=== PATIENT | female | born 2000 | race African-American/Black ===

== ENCOUNTER 2024-09-06 19:30 | Emergency (ER) | payer OTHER, BC, SELFPAY ==
--- NOTE | ~2024-09-06 | XR_ITS ---
EXAM: XR ankle LT min 3V DATE: 09/06/2024 19:52 HISTORY: twisted ankle at work today . COMPARISON: None available. FINDINGS: Normal mineralization. No fracture or dislocation. No lytic or blastic lesion. Joint space s are maintained. No erosion or periosteal change. Soft tissues within normal limits. IMPRESSION: No acute osseous finding in the left ankle. Reviewed, dictated and finalized at location K.
[2024-09-06 19:40] VITALS: BP 127/71; PULSE 87; RESP 16; TEMP 36.8; O2SAT 100
--- NOTE | 2024-09-06 20:48 | ED_ITS ---
HPI - Extremity Injury (Lower) General Chief Complaint: Extremity Injury, Lower Stated Complaint: possible sprained ankle Time Seen by Provider: 09/06/24 20:41 History of Present Illness HPI Narrative: Pt stepped off of a shelf at work and rolled ankle. Pt complains of pain to left lateral ankle, Pt denies other injury. Related Data Allergies Allergy/AdvReac Type Severity Reaction Status Date / Time No Known Allergies Allergy Verified 09/06/24 20:52 Review of Systems Review of Systems: All systems reviewed & are unremarkable except as noted in HPI and below Exam Const: General: healthy appearing and no acute distress Nutritional Appearance: well nourished Orientation/consciousness: patient oriented x3 Limitations: no limitations Neck: Neck: normal visual inspection Resp: Effort & Inspection: normal respiratory effort Auscultation: clear to auscultation bilaterally Cardio: Rate: regular rate Rhythm: regular rhythm GI: GI Palp: Yes Soft to palpation Skin: General skin exam: normal color Neuro: General: patient oriented x3, moves all extremities, no meningeal signs and no focal motor deficits Extrem: Other: tender over atfl on left with mild swelling. Psych: Mental Status: mental status grossly normal Affect: normal affect Attitude: cooperative Course Vital Signs Vital signs: Vital Signs Temperature 98.3 F 09/06/24 19:40 Pulse Rate 87 09/06/24 19:40 Respiratory Rate 16 09/06/24 19:40 Blood Pressure 127/71 09/06/24 19:40 Pulse Oximetry 100 09/06/24 19:40 Oxygen Delivery Room Air 09/06/24 19:40 Temperature 98.3 F 09/06/24 19:40 Pulse Rate 87 09/06/24 19:40 Respiratory Rate 16 09/06/24 19:40 Blood Pressure 127/71 09/06/24 19:40 Pulse Oximetry 100 09/06/24 19:40 Oxygen Delivery Room Air 09/06/24 19:40 MDM - Extremity Injury (Lower) MDM Narrative Medical decision making narrative: pt rolled left ankle and has pain to lateral ankle. will get x ray to rule out fx but seems like sprain. x ray neg. home on nsaid and crutches merary Discharge Plan Discharge Clinical Impression: Ankle sprain and strain Patient Disposition: Home Condition: Stable Instructions: Antibiotic Form, Ankle Sprain (DC) Patient Language: Ukrainian Prescriptions: New naproxen [Naprosyn] 500 mg tablet 500 mg PO BID Qty: 20 0RF Follow-up/Referrals: PHYSICIAN NOT ON STAFF,NONSTAFF [Non-Staff] -
--- OUTSIDE RECORDS SUMMARY | 2024-09-06 21:22 | XMS_ITS | Data [employer] ---
Author Organization [employer] , [facility] Address [address] [place] [address] Assessment No assessment recorded. Plan of Treatment Reminders Order Date Submit Date Provider Last Modified By Organization Details Last Modified Time Details Appointments None recorded. Lab bacterial vaginosis + vaginitis panel, vaginal 2022 023 [employer] Mehdi, [address] [place], [address], 3 09:01:40 STI panel 2022 023 [facility] [employer] Mehdi, [address] [place], [address], 3 12:34:29 bacterial vaginosis + vaginitis panel, vaginal 2022 023 [employer] Mehdi, [address] [place], [address], 3 12:40:28 lipid panel, serum 2022 023 [employer] [facility], [address] [facility], [place], [address], 3 11:05:05 TSH + free T4, serum 2022 023 [employer] Mehdi, [address] [place], [address], 3 11:27:18 hemoglobin A1c, QN, blood 2022 023 [facility] Mehdi, [address] [place], [address], 3 10:40:12 CBC w/ auto diff 2022 023 [facility] Mehdi, [address] [place], [address], 13:27:21 Referral None recorded. Procedures None recorded. Surgeries None recorded. Imaging None recorded. Medication Orders Ferretts 325 mg (106 mg iron) tablet 2022 023 [id number], [address], [place], [id number], 12:39:16 Patient TargetsNo targets recorded. Patient InstructionsNo instructions recorded. Reason for Referral None Reported. Results Created Date Observation Date Name Description Value Unit Range Abnormal Flag Note LastModifiedBy Organization Detail LastModifiedTime 08/17/1908/16/2022 LIPID PANEL , STAND ROSALBA cholesterol, total 192 mg/dL <200 normal Not Available [facility] [place] [address] [place], [address], 08/16/2022 11:05:05 08/17/19 23 08/16/2022 LIPID PANEL , STAND ROSALBA HDL cholesterol 79 mg/dL > or = 50 normal Not Available [facility] [address] [place], [address], 08/16/2022 11:05:05 08/17/1908/16/2022 LIPID PANEL , STAND ROSALBA triglyceride s 41 mg/dL <150 normal Not Available [facility] [address] [place], [address], 08/16/2022 11:05:05 08/17/19 23 08/16/2022 LIPID PANEL , STAND ROSALBA LDL-choleste rol 101 mg/dL _(jaylyn c) high Refer ence range : <100 Anayeli able range <100 mg/dL for prima ry preve ntion ; <70 mg/dL for patie nts with CHD or diabe tic patie nts with > or = 2 CHD risk facto rs. LDL-C is now calcu lated using the [facility] kins earlenelaz velazquez n, which is a valid ated novel metho d provi ding sabina r accur acy than the Fried usama reynoldsat ion in the estim ation of LDL-C . Osiris whitaker SS et al. SUSANNA. 2013; 310(1 9): 2061- 2068 (http ://ed ucati on.Qu estDi [employer]. com/f aq/FA Q164) Not Available [facility] [place] [address] [place], [address], 08/16/2022 11:05:05 08/17/19 23 08/16/2022 LIPID PANEL , STAND ROSALBA chol/HDLC ratio 2.4 (calc ) <5.0 normal Not Available [facility] [place] [address] [facility] [place], [address], 08/16/2022 11:05:05 08/17/19 23 08/16/2022 LIPID PANEL , STAND ROSALBA non HDL cholesterol 113 mg/dL _(jaylyn c) <130 normal For patie nts with diabe jamar plus 1 major ASCVD risk facto r, treat ing to a non-H DL-C goal of <100 mg/dL (LDL- C of <70 mg/dL ) is consi dered a thera peuti c optio n. NO COLLE CTION DATE RECEI YAMILETH. WE HAVE USED THE DATE THE SPECI MEN WAS RECEI YAMILETH BY THIS LABOR ATORY THE COLLE CTION DATE. IF THIS IS INCOR RECT, PLEAS E CONTA CT CLIEN T SERVI LORENZO. PHONE NUMBE R: [phone] Not Available [facility] [address] [place], [address], 08/16/2022 11:05:05 08/17/19 23 08/16/2022 CBC (INCL UDES DIFF/ PLT) WBC 4.0 thous and/u L 4.0 - 9.8 low Not Available [facility] [address] [place], [address], 08/16/2022 13:27:21 08/17/19 23 08/16/2022 CBC (INCL UDES DIFF/ PLT) RBC 4.3 darshana on/uL 3.9 - 4.9 normal Not Available [facility], [address], 08/16/2022 13:27:21 08/17/19 23 08/16/2022 CBC (INCL UDES DIFF/ PLT) hemoglobin 7.7 g/dL 11.8 - 14.8 low Not Available [facility] [address] [place] [address], [address], 08/16/2022 13:27:21 08/17/19 23 08/16/2022 CBC (INCL UDES DIFF/ PLT) hematocrit 26.9 % 35.5 - 44.0 low Not Available [facility] [address] [place] [address], [address], 08/16/2022 13:27:21 08/17/19 23 08/16/2022 CBC (INCL UDES DIFF/ PLT) MCV 62.3 fL 82.0 - 99.0 low COMME NT: MCV Verif ied by smear revie w Not Available [address], [address], 08/16/2022 13:27:21 08/17/19 23 08/16/2022 CBC (INCL UDES DIFF/ PLT) MCH 17.8 pg 27.2 - 32.6 low Not Available [facility] [address] [place] [address], [address], 08/16/2022 13:27:21 08/17/19 23 08/16/2022 CBC (INCL UDES DIFF/ PLT) MCHC 28.6 g/dL 31.5 - 35.5 low COMME NT: MCHC Verif ied by smear revie w Not Available [address], [address], 08/16/2022 13:27:21 08/17/19 23 08/16/2022 CBC (INCL UDES DIFF/ PLT) RDW-CV 22.7 % 11.5 - 14.5 high Not Available [address], [address], 08/16/2022 13:27:21 08/17/19 23 08/16/2022 CBC (INCL UDES DIFF/ PLT) platelet 421 thous and/u L 140 - 350 high Not Available [address], [address], 08/16/2022 13:27:21 08/17/19 23 08/16/2022 CBC (INCL UDES DIFF/ PLT) MPV 10.2 fL 9.3 - 12.4 normal Not Available [address], [address], 08/16/2022 13:27:21 08/17/19 23 08/16/2022 CBC (INCL UDES DIFF/ PLT) absolute neutrophil 1.75 thous and/u L 1.90 - 7.00 low Not Available [address], [address], 08/16/2022 13:27:21 08/17/19 23 08/16/2022 CBC (INCL UDES DIFF/ PLT) absolute lymphocyte 1.65 thous and/u L 0.70 - 4.50 normal Not Available [address], [address], 08/16/2022 13:27:21 08/17/19 23 08/16/2022 CBC (INCL UDES DIFF/ PLT) absolute monocyte 0.36 thous and/u L 0.10 - 1.30 normal Not Available [address], [address], 08/16/2022 13:27:21 08/17/19 23 08/16/2022 CBC (INCL UDES DIFF/ PLT) absolute eosinophil 0.18 thous and/u L <0.70 normal Not Available [address], [address], 08/16/2022 13:27:21 08/17/19 23 08/16/2022 CBC (INCL UDES DIFF/ PLT) absolute basophil 0.02 thous and/u L <0.20 normal Not Available [address], [address], 08/16/2022 13:27:21 08/17/19 23 08/16/2022 CBC (INCL UDES DIFF/ PLT) absolute immature granulocyte 0.03 thous and/u L <0.03 normal Not Available [address], [address], 08/16/2022 13:27:21 08/17/19 23 08/16/2022 MANUA L DIFFE RENTI AL %neutrophil 43 % 34 - 71 normal Not Available [address], [address], 08/16/2022 13:27:22 08/17/19 23 08/16/2022 MANUA L DIFFE RENTI AL %lymphocyte 44 % 19 - 52 normal Not Available [address], [address], 08/16/2022 13:27:22 08/17/19 23 08/16/2022 MANUA L DIFFE RENTI AL %monocyte 9 % 5 - 13 normal Not Available [address], [address], 08/16/2022 13:27:22 08/17/19 23 08/16/2022 MANUA L DIFFE RENTI AL %eosinophil 3 % 1 - 6 normal Not Available [facility] [address] [place] [address], [address], 08/16/2022 13:27:22 08/17/19 23 08/16/2022 MANUA L DIFFE RENTI AL %basophil 1 % 0 - 1 normal Not Available [address] [place], [address], 08/16/2022 13:27:22 08/17/19 23 08/16/2022 MANUA L DIFFE RENTI AL platelet estimate Consis tent with count Not Available [facility] [address] [place], [address], 08/16/2022 13:27:22 08/17/19 23 08/16/2022 MANUA L DIFFE RENTI AL anisocytosis 2+ Not Available [facility] [address] [place] [address], [address], 08/16/2022 13:27:22 08/17/19 23 08/16/2022 MANUA L DIFFE RENTI AL greg cells 1+ Not Available [facility] [address] [place], [address], 08/16/2022 13:27:22 08/17/19 23 08/16/2022 MANUA L DIFFE RENTI AL hypochromia 2+ Not Available [facility] [address] [place], [address], 08/16/2022 13:27:22 08/17/19 23 08/16/2022 MANUA L DIFFE RENTI AL microcytosis 2+ Not Available [facility] [address] [place] [address], [address], 08/16/2022 13:27:22 08/17/19 23 08/16/2022 MANUA L DIFFE RENTI AL poikilocytos is 3+ Not Available [facility] [address] [place], [address], 08/16/2022 13:27:22 08/17/19 23 08/16/2022 MANUA L DIFFE RENTI AL target cell 2+ Not Available [facility] [address] [place] [address], [address], 08/16/2022 13:27:22 08/16/19 23 08/16/2022 HEMOG LOBIN A1C hemoglobin A1C 5.3 % <5.7 normal The refer ence range for HbA1c is indic ated in the table below . Sugge sted Diagn osis =6.5% Consi stent with diabe jamar 5.7 6.4% Consi stent with incre ased risk for diabe jamar (pred iabet ic) <5.7% Consi stent with the absen ce of diabe jamar Not Available [facility] [address] [place], [address], 08/16/2022 10:40:12 08/16/19 23 08/16/2022 TSH W/ T4, FREE TSH 1.17 mIU/L 0.55 - 4.78 normal Refer ence Range Femal e aged 18-Ad ult: 0.55- 4.78 Pregn sharan Refer ence Range s First Trime ster 0.26- 2.66 Secon d Trime ster 0.55- 2.73 Third Trime ster 0.43- 2.91 Not Available [place], [address], 08/16/2022 11:27:17 08/16/19 23 08/16/2022 TSH W/ T4, FREE T4, free 0.89 NG/dL 0.89 - 1.76 normal Not [place], [address], 08/16/2022 11:27:17 08/16/19 23 08/16/2022 VAGIN ITIS PLUS STD PANEL bacterial vaginosis BV neg negati ve normal Not Available [facility] [employer] [address] [place] [address], [address], 08/16/2022 12:40:27 08/16/19 23 08/16/2022 VAGIN ITIS PLUS STD PANEL anjali species C. spp neg negati ve normal Not Available [place], [address], 08/16/2022 12:40:27 08/16/19 23 08/16/2022 VAGIN ITIS PLUS STD PANEL anjali glabrata C. gla neg negati ve normal Not Available [address], [address], 08/16/2022 12:40:27 08/16/19 23 08/16/2022 VAGIN ITIS PLUS STD PANEL trichomonas vaginalis CV/TV TRICH neg negati ve normal Not Available [address], [address], 08/16/2022 12:40:27 08/16/19 23 08/16/2022 VAGIN ITIS PLUS STD PANEL chlamydia trachomatis CT neg negati ve normal This repor t is inten ded for us in clini jaylyn monit oring and manag ement of patie nts. It is not inten ded for use in medic al-le gal appli catio n. Not Available [address], [address], 08/16/2022 12:40:27 08/16/19 23 08/16/2022 VAGIN ITIS PLUS STD PANEL neisseria gonorrhoeae GC neg negati ve normal This repor t is inten ded for us in clini jaylyn monit oring and manag ement of patie nts. It is not inten ded for use in medic al-le gal appli catio n. Not Available [address], [address], 08/16/2022 12:40:27 10/01/19 23 10/01/2022 VAGIN ITIS PLUS STD PANEL bacterial vaginosis BV neg negati ve normal Not Available [address], [address], 10/02/2022 09:01:40 10/01/19 23 10/01/2022 VAGIN ITIS PLUS STD PANEL anjali species C. spp neg negati ve normal Not Available [address], [address], 10/02/2022 09:01:40 10/01/19 23 10/01/2022 VAGIN ITIS PLUS STD PANEL anjali glabrata C. gla neg negati ve normal Not Available [address], [address], 10/02/2022 09:01:40 10/01/19 23 10/01/2022 VAGIN ITIS PLUS STD PANEL trichomonas vaginalis CV/TV TRICH neg negati ve normal Not Available [address], [address], 10/02/2022 09:01:40 10/01/19 23 10/01/2022 VAGIN ITIS PLUS STD PANEL chlamydia trachomatis CT neg negati ve normal This repor t is inten ded for us in clini jaylyn monit oring and manag ement of pati nts. It is not inten ded for use in medic al-le gal appli catio n. Not Available [address], [address], 10/02/2022 09:01:40 10/01/19 23 10/01/2022 VAGIN ITIS PLUS STD PANEL neisseria gonorrhoeae GC neg negati ve normal This repor t is inten ded for us in clini jaylyn monit oring and manag ement of patie nts. It is not inten ded for use in medic al-le gal appli catio n. Not Available [address], [address], 10/02/2022 09:01:40 Result Notes None recorded. Medical Equipment None Reported. Allergies No known drug allergies Medications Name Sig Start Date Stop Date Status Note LastModified by Organization Details LastModified Time Colace 100 mg capsule Take 1 capsule twice a day by oral route. 023 active Not Available Not Available Not Avai lable Ferretts 325 mg (106 mg iron) tablet Take 1 tablet twice a day by oral route. 023 active Not Available Not Available Not Avai lable Vitamin 27 mg iron-800 mcg tablet Take 1 tablet every day by oral route. 023 active Not Available Not Available Not Avai lable Vitals Date Recorded Body height Body mass index (BMI) [Percentile] Per age and sex Body mass index (BMI) Body weight Body temperature Systolic And Diastolic Provider Name and Address Organization Details Last Updated DateTime 3 165.1 cm 26 % 19.9 kg/m2 27567.6 5 g 97.9 [degF] 110/62 mm[Hg] Janice Quintana [employer] 3 10:18:48 Date Recorded Body height Body mass index (BMI) Body weight Body temperature Systolic And Diastolic Provider Name and Address Organization Details Last Updated DateTime 09/30/2022 165.1 cm 20.7 kg/m2 11317.8 9 g 98.1 [degF] 118/62 mm[Hg] Allie Resendiz [employer] [facility] 3 11:29:55 Social History Question Answer Notes LastModified by [employer] Details LastModified Time Tobacco Smoking Status Never Smoker Janice Quintana [facility] [employer] 08/15/2022 10:10:00 Are You Blind Or Do You Have Difficulty Seeing? No Information not available 08/15/2022 Are You Deaf Or Do You Have Serious Difficulty Hearing? No Information not available 08/15/2022 What Type Of Diet Are You Following? REGULAR Information not available 08/15/2022 How Many Children Do You Have? 0 Information not available 08/15/2022 What Is Your Relationship Status? Single Information not available 08/15/2022 Are You Sexually Active? No Information not available 08/15/2022 Sex: Unknown Functional Status Question Answer Note LastModified by [employer] Details LastModified Time Do you use any illicit or recreational drugs? No Information not available 08/15/2022 What is your level of alcohol consumption? None Information not available 08/15/2022 Do you or have you ever used e-cigarettes or vape? Never used electronic cigarettes Information not available 08/15/2022 What is your exercise level? Occasional Information not available 08/15/2022 Mental Status None recorded. Family History Relationship Description Onset Age of this Age Resolved Age Notes LastModified by Organization Details LastModified Time Father No current problems or disability Not available 08/15 10:14:26 Mother No current problems or disability Not available 08/15 10:14:26 Medical History Condition Response Other Cancer N High Blood Pressure N Colon Cancer N Cytomegalovirus N Hyperthyroidism N MRSA N Breast Cancer N Herpes (HSV) N Blood Transfusion N Lung Cancer N Depression N Hypothyroidism N Incontinence N Panic Attacks N Neurological Disorder N Deep Vein Thrombosis N Anxiety Disorder N Autoimmune disease N Arthritis N Tuberculosis/Positive PPD N Shingles N Polycystic Ovarian Syndrome N Cervical Cancer N Hematuria N Chlamydia N Stroke N Varicosities N Seasonal allergies N Crohn's Disease N Alzheimer's/Dementia N COPD/Emphysema N Endometriosis N HPV/Genital Warts N IBS (Irritable Bowel Syndrome) N History of Abnormal Pap N High Cholesterol N Liver Disease N Kidney Infection N Fibromyalgia N Ulcer N Kidney Disease N HIV N Gallbladder disease N Sickle Cell Disease/Trait N Von Willebrand disease N ADD/ADHD N Eating Disorder N Anemia N Diabetes Mellitus (non-insulin dependent ) N Multiple Sclerosis N Ovarian Problems N Gonorrhea N Frequent Urinary Tract infections N Osteopenia N Headaches/migraines N GERD (reflux) N Ovarian Cancer N Diabetes (insulin dependent) N Seizures/Epilepsy N Fibroids N Asthma N Heart Attack N Lupus N Endometrial Cancer N Rubella N Blood Clotting Disorder N Bipolar Disorder N Diabetes Mellitus (during ) N Ulcerative Colitis N Hepatitis N Heart Disease N Pulmonary Embolism N RPR N Chicken Pox N Osteoporosis N Gynecological History Statement/Question Response Flow Light Date of LMP 08/07/2022 Frequency of Cycle (Q days) 30 Date of Last Pap Smear Duration of Flow (days) 5 Current Control Method None Age at Menarche 10 Obstetrics History GPAL:G 0 P 0 0 0 0 Past Encounters Encounter ID Performer Location Encounter Start Date Encounter Closed Date Diagnosis/Indication Diagnosis SNOMED-CT Code Diagnosis ICD10 Code Diagnosis Note [id number] Chadd Chaney MD [facility] [address] [place] [address] 08/15/2022 10:07:46 08/15/2022 17:15:31 Vaginal discharge 874673739 N89.8 N76.0 Thyroid di sorder screening 124487969 Z13.29 Hyperlipid emia screening 684564626 Z13.220 Diabetes m ellitus screening 155348594 Z13.1 Anemia screening 1902004 07 Z13.0 Gynecologi c examination 53378912 Z01.419 patient is still virgin and never been sexually active , pap was not done desires to wait till become sexually active Contracept ion care management 685098546 Z30.9 Declined contracept ion at this time [id number] KAY BASILIO [facility] [address] [place] [address] 09/30/2022 11:03:40 09/30/2022 15:48:17 Vaginal discharge 026916901 N89.8 N76.0 Patient states she is having brown spotting between each cycle and an increase in vaginal discharge that she has had for several months. Discussed reasons for spotting including hormonal imbalance or infection. Pt educated on exam findings, and discussed POC. Vaginal cx collected and sent. Rx for Flagyl and Diflucan sent. Pt advised to avoid fragrant soaps/laun dry detergents , use of baking soda soaks, having partner change soaps, etc. Further POC pending lab result review. Mid-cycle bleeding 57544 0006 N92.1 Patient is spotting between cycles, has been going on since July. Patient was seen in August for similar issues. Discuss potential causes of spotting including infection or hormonal imbalance. Discussed if testing comes back negative then will start patient on some hormonal control. Encouraged patient to go to [facility] for more informatio n on hormonal control options. Patient is agreeable to POC. Further POC pending results. Anemia 169672741 D64.9 Health Concerns Section Related Observation LastModified by Organization Detai ls LastModified Time None Recorded Concern Status LastModified by Organization Details LastModified Time None Recorded Advance Directives Directive None Recorded Payers Insurance Date Sequence Insurance Name Policy Number Policy Qunionez Covered Member ID Quinonez Member ID Guarantor Name 03/07/2023 1 AETE (PPO) [id number] Janee Jeffries [id number] Shawn Rees Notes Date Note Type Note Provider Name and Address Organization Details Recorded Time 08/15/2022 text/html Vaginal/Vulvar ProblemReported bypatient.Location:[facility] Onset/Timing:occurs prior to menses Duration:present for 1-7 days Severity:mild Alleviating Factors:none Aggravating Factors:none Associated Symptoms:no vaginal itching; no vaginal irritation Patient c/o abnormal discharge Chadd Chaney MD [address] [facility], [place], [address], [facility] [employer] [facility] 08/15/2022 10:38:39 09/30/2022 text/html Pt states she is doing well. Reports an increase in brown vaginal discharge in between menstrual cycle. Pt has had this going on since her cycle in July of 2022. Pt has no other concerns. KAY BASILIO [address] [facility], [place], [address], [facility] [employer] [facility] 09/30/2022 12:39:18 OBGyn Episode No OBEpisode recorded.
== END 2024-09-06 21:24 | disposition home or self-care (01) ==
LOC: ANHED 21:20
PROVIDERS: Emergency Provider Emergency Medicine
DX: S93.402A Sprain of unspecified ligament of left ankle, initial encounter (principal); X58.XXXA Exposure to other specified factors, initial encounter
CPT/HCPCS: 73610; 99283